=== PATIENT | male | born 1970 ===

== ENCOUNTER 2019-11-26 10:49 | Outpatient (CLI) | payer OTHER | END 2019-11-26 11:14 | disposition home or self-care (01) | LOC: LAB 10:49 | DX: J11.1 Influenza due to unidentified influenza virus with other respiratory manifestations (principal); R05 Cough ==

== ENCOUNTER 2022-03-25 08:36 | Emergency (ER) | payer OTHER ==
[~2022-03-25] VITALS: Ht 172.7 cm; Wt 114.8 kg
[2022-03-25] MEDS ORDERED: SYNJARDY 12.5-1 EACH (08:53)
[2022-03-25] MEDS ORDERED: LEVOFLOXACIN250 MG PO (10:22)
== END 2022-03-25 12:04 | disposition home or self-care (01) ==
LOC: ER 08:36
DX: L60.0 Ingrowing nail (principal); I10 Essential (primary) hypertension; E11.9 Type 2 diabetes mellitus without complications; Z79.84 Long term (current) use of oral hypoglycemic drugs